=== PATIENT | female | born 1995 | race Caucasian/White ===

== ENCOUNTER 2017-07-10 04:11 | Observation (INO) | payer BC ==
[2017-07-10] MEDS ORDERED: Morphine Sulfate 2 MG/ML SYRINGE SLOW IVP PRN (06:57)
[2017-07-10] MEDS ORDERED: Ondansetron HCl/PF 4 MG/2 ML Vial IVP PRN ×3 (06:59→14:11)
[2017-07-10] MEDS ORDERED: Ondansetron ODT 4 MG TAB PO PRN (06:59)
[2017-07-10] MEDS ORDERED: Sodium Chloride 0.9% 1,000 ML IV SCH (07:00)
[2017-07-10 07:49] VITALS: BMI 24.2
--- NOTE | 2017-07-10 09:36 | HP ---
DATE OF ADMISSION: 07/10/2017 HISTORY OF PRESENT ILLNESS: This is a 21-year-old woman who presented with insidious onse t of right lower quadrant abdominal pain which started approximately 1800 hours. The patient was se en in [facility] in [place]. She was reporting some nausea without any emesis. She reported s ome chills, no fever. She denies any diarrhea. Her workup was suspicious for acute appendicitis fo r which patient was transferred to [facility]. At the time of my evaluation, she rates her pain at 8/10. She denies any fevers or chills currently. PAST MEDICAL HISTORY: Pertinent for hypothyroidism. SURGICAL HISTORY: Pertinent for tonsillectomy and adenoidectomy and wisdom tooth extraction. CURRENT MEDICATIONS: Includes Synthroid 50 mcg p.o. daily and oral control pills. ALLERGIES: Patient denies any known drug allergies. 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 She denies any cigarette smoki ng, ethanol or illicit drug abuse. She is G0, P0. Last menstrual period was 2 weeks ago and was no rmal. FAMILY HISTORY: Notable for paternal aunt with diabetes mellitus. Both grandparents from either si de of her family have heart disease. She denies any family history of cancer. REVIEW OF SYSTEMS: Ten point review of systems essentially unremarkable except for as stated in pas t medical history and chief complaint. PHYSICAL EXAMINATION: GENERAL: This reveals a 21-year-old normally developed woman who is otherwise coherent and interact nemo and appears stated age. The patient is alert and oriented x3. She appears to be in no signific ant acute distress at the time of my evaluation. VITAL SIGNS: Currently includes blood pressure 113/66, pulse 97, respiration 18, temperature 98.7 d egrees Fahrenheit, and oxygen saturation 99% on room air. HEENT: Examination reveals normocephalic and atraumatic. Her pupils are equal, round, and reactive to light and accommodation. Extraocular muscles are intact bilaterally. She has no sclerae icteru s present. Her oral mucosa is pink and moist. She has no lesions noted. HEART: Reveals regular rate and rhythm, no murmurs or gallops auscultated. LUNGS: Clear to auscultation bilaterally. Her breathing is regular and unlabored. ABDOMEN: Soft with right lower quadrant tenderness at McBurney's. She has a positive Rovsing sign. Liver and spleen are otherwise nonpalpable below costal margins. EXTREMITIES: Reveals 2+ radial and pedal pulses bilaterally. No ankle edema is present. NEUROLOGIC: Examination reveals no focal deficits present. LABORATORY DATA AND IMAGING: I have reviewed all pertinent laboratory studies from [place] includ ing metabolic profile. Sodium 141, potassium 3.5, chloride is 108, bicarbonate 24, glucose 88, BUN 5.3, and creatinine is 0.8. CBC there as well with 11,200 white blood cells, hemoglobin 12.6, hemat ocrit 38.3, and platelet count 426,000. Urinalysis was essentially unremarkable. I have also perso bill reviewed the CT scan of the abdomen and pelvis which accompanied her from [place] which is r emarkable for mildly dilated appendix with periappendiceal fat stranding. No pneumoperitoneum or si gnificant free fluid noted. IMPRESSION: Acute appendicitis. RECOMMENDATIONS: Laparoscopic appendectomy. I have informed the patient of the above findings and recommendations. I have also advised of the risks and benefits of the proposed surgery. Risks incl ude, but not limited to bleeding, infection, injury to bowel or surrounding structures. She indicat es understanding of this information and has granted consent for this admission and surgical interve ntion.
[2017-07-10] MEDS ORDERED: Bupivacaine/Epinephrine 0.25% 30 ML VIAL ONE (12:31)
[2017-07-10] MEDS ORDERED: Piperacillin/Tazobactam 3.375 GM in Sodium Chloride 0.9% 100 ML IVPB SCH (12:45)
[2017-07-10] MEDS ORDERED: Fentanyl 100 MCG/2 ML VIAL ONE ×2 (12:59→15:02)
[2017-07-10] MEDS ORDERED: Ondansetron HCl/PF 4 MG/2 ML Vial ONE (13:17)
[2017-07-10] MEDS ORDERED: Dexamethasone 20 MG/5 ML VIAL ONE (13:17)
[2017-07-10] MEDS ORDERED: Propofol 200 MG/20 ML VIAL ONE (13:17)
[2017-07-10] MEDS ORDERED: Ketorolac Tromethamine 30 MG/ML VIAL ONE (13:17)
[2017-07-10] MEDS ORDERED: Glycopyrrolate 0.2 MG/ML 5 ML SYRINGE ONE (13:17)
[2017-07-10] MEDS ORDERED: Lidocaine 2% PF 10 ML AMP (For Epidural Use) ONE (13:17)
[2017-07-10] MEDS ORDERED: Meperidine HCl/PF 25 MG/ML VIAL SLOW IVP PRN (14:06)
[2017-07-10] MEDS ORDERED: Promethazine HCl 25 MG/ML VIAL SLOW IVP PRN (14:06)
[2017-07-10] MEDS ORDERED: Promethazine HCl 25 MG/ML VIAL IM PRN ×2 (14:06→14:11)
[2017-07-10] MEDS ORDERED: Dextrose 50% Abboject 50 ML SYRINGE SLOW IVP PRN (14:11)
[2017-07-10] MEDS ORDERED: Dextrose 5% in Water 1,000 ML IV PRN (14:11)
[2017-07-10] MEDS ORDERED: traMADol HCl 50 MG TAB PO PRN ×2 (14:12)
[2017-07-10] MEDS ORDERED: Lactated Ringer's 1,000 ML IV SCH (14:15)
[2017-07-10] MEDS ORDERED: Ketorolac Tromethamine 30 MG/ML VIAL IVP SCH (18:00)
[2017-07-10] MEDS ORDERED: Acetaminophen 500 MG TAB PO SCH (18:00)
--- NOTE | 2017-07-10 18:06 | OP ---
DATE OF OPERATION: 07/10/2017 PREOPERATIVE DIAGNOSIS: Acute appendicitis. POSTOPERATIVE DIAGNOSIS: Acute appendicitis. PROCEDURE PERFORMED: Laparoscopic appendectomy. SURGEON: Khari Allen D.O. ANESTHESIA: General endotracheal. ESTIMATED BLOOD LOSS: 5 mL FLUIDS GIVEN: 1000 mL crystalloids. COUNTS: Sponge and instrument count certified as correct x2. COMPLICATIONS: None apparent at the time of operation. INDICATIONS FOR PROCEDURE: This is a 21-year-old woman who presented with insidious onset abdominal pain. Clinical and radiographic examination was consistent with acute appendicitis for which patie nt was brought to the operating room for appendectomy. Findings are consistent with an inflamed suppurative appendix in the usual anatomic location. No ev idence of perforation or abscess. DESCRIPTION OF PROCEDURE: Informed consent obtained from the patient, who was brought to the operat ing room and placed in supine position. Following general anesthesia, abdomen was sterilely prepped and draped in the usual fashion. The skin below the umbilicus was infiltrated with 0.25% Marcaine with epinephrine. A small curvilinear infraumbilical incision was made using an 11 scalpel. Umbili pat stalk was grasped with Carly's and elevated. Veress needle was inserted through this incision and placed in the peritoneal cavity through which the abdomen was insufflated with 2 liters of CO2 g as. Intraabdominal pressure noted at 1 mmHg. Following abdominal insufflation, Veress needle was r emoved and a 5 mm trocar was introduced using a Visiport under laparoscopy. Laparoscopy confirmed p mere placement of the port, no injuries to underlying structures. An additional laparoscopy reveal s the right lower quadrant partially encased by omental adhesions. Under direct laparoscopy, a 5 mm suprapubic and 12 mm left lower quadrant ports were placed after the overlying skin was infiltrated with 0.25% Marcaine with epinephrine and appropriate incisions made. The patient was placed in a T rendelenburg position, rotated to her left. I used a Prestige grasper from the left lower quadrant port site to bluntly take down omental adhesions to reveal a suppurative appendix in the usual anato domenic location. Endo Cypress forceps introduced through the suprapubic port site, it was used to gras p the appendix which was elevated. I then used a [place] dissector to create a rent through the me soappendix at the base. Using a blue load of the Endo-ANNIKA, the appendix was divided at appendicocec al junction. White load Endo-ANNIKA was then used to divide the mesoappendix at the base. Suppurative appendix was delivered out of the abdominal cavity using an EndoCatch. Operative site was inspecte d for good hemostasis. Finding no other pathology, laparoscopy was terminated. The fascia of the l eft lower quadrant port site was closed using 0 Vicryl suture and Endo closure device under laparosc opy. Abdomen was desufflated. All ports and instruments were removed and accounted for. Skin inci sions were closed using 4-0 Monocryl suture in subcuticular fashion. Dermabond was applied. The pa tient tolerated the operation without any apparent complication and was returned to recovery room in satisfactory condition.
[2017-07-10 19:53] VITALS: BP 103/65; TEMP 98.7
[2017-07-10] MEDS ORDERED: Famotidine 20 MG TAB PO SCH (21:00)
[2017-07-10] MEDS ORDERED: Famotidine/PF 20 mg/2ml Vial SLOW IVP SCH (21:00)
[2017-07-10] MEDS ORDERED: Enoxaparin Sodium 40 MG/0.4 ML SYRINGE SC SCH (21:00)
[2017-07-10] MEDS ORDERED: FLU VACC QS2017-18 36 mo. & older 0.5 ML SYRINGE IM ONE (21:00)
== END 2017-07-10 19:50 | disposition home or self-care (01) ==
LOC: ERS 04:11 → SURG A 06:28
PROVIDERS: ADMIT Surgery; ATTEND Anesthesiology
PROC: 0DTJ4ZZ Resection of Appendix, Percutaneous Endoscopic Approach (ICD-10-PCS; principal; 2017-07-10)
DX: K35.80 Unspecified acute appendicitis (principal); E03.9 Hypothyroidism, unspecified; Z79.899 Other long term (current) drug therapy; Z90.89 Acquired absence of other organs
CPT/HCPCS: 88304; 96374; 96375; 96376; A4216; G0378; J1100; J1885; J2001; J2270; J2405; J2543; J2704; J3010; J7050